=== PATIENT | female | born 1970 | race Two or more races ===

== ENCOUNTER → 2017-03-28 | Outpatient (CLI) | payer OTHER ==
[~2017-03-28] MED LIST: IBUPROFEN
--- NOTE | ~2017-03-28 | MY29 ---
[facility] A Service of [facility] RADIOLOGY TEXT RESULTS PATIENT: MARISSA RILEY [facility] : 72 UNIT #: [id number] AGE: [address]: JADEN MAGAÑA APRN SEX: F ORDER DR: [id number] [facility] [address] [place], [place] [address] [id number] O MR#: [id number] Acc #: [id number] NAME: MARISSA RILEY : 1970 SEX: F STUDY DATE/TIME: 03/28/2017 9:27 [facility] ROOM: STUDY DESCRIPTION: [facility] SCREENING W/ CAD BILAT Ordering Physician: Catina Magaña M.D. Primary Care Physician: Ari Amaro M.D. MEDICAL IMAGING REPORT This report is preliminary unless electronic signature is present EXAM Digital screening mammogram 03/28/2017 HISTORY 46-year-old woman, no risk elevation. Annual screening. COMPARISON STUDIES Comparison mammograms 05/08/2015. Follow-up diagnostic right breast imaging 06/19/2015. FINDINGS Digital imaging of each breast was completed utilizing a two-view examination of each breast in craniocaudal and mediolateral-oblique projections. Review and interpretation of digital mammograms include a second review in conjunction with FDA-approved CAD device. There is a normal parenchymal presentation bilaterally consistent with the patient's age. There are no breast masses imaged and no parenchymal asymmetry is visualized. There are no suspicious microcalcifications and I see no focal architectural disturbance. IMPRESSION Negative screening digital mammogram. One-year followup recommended. Patients over the age of 40 are entered into a reminder system with target due date for the next mammogram. A result letter will also be sent to the patient. BIRADS: 1 Negative Dictated by... Panda Diaz M.D. [facility] A Service of [facility] RADIOLOGY TEXT RESULTS PATIENT: MARISSA RILEY [facility] 71 UNIT #: [id number] AGE: [address]: JADEN MAGAÑA APRN SEX: F ORDER DR: THIS IS AN ELECTRONICALLY VERIFIED REPORT Panda Diaz M.D. at 03/29/2017 8:04 AM MAKSIM/pcl TD: 03/28/2017 16:57 JOB #: [id number] MEDICAL IMAGING REPORT Page 1 of 1 COPY
== END | disposition home or self-care (01) ==
LOC: CWCC 09:09
DX: Z12.31 Encounter for screening mammogram for malignant neoplasm of breast (principal)
CPT/HCPCS: G0202